=== PATIENT | male | born 1970 | race Hispanic/Latino ===

== ENCOUNTER → 2021-10-08 16:05 | Outpatient (CLI) | payer OTHER, SELFPAY ==
--- NOTE | 2021-10-08 16:09 | DI.RAD.S_ITS ---
PROCEDURE: XR KNEE RT 3V INDICATIONS: R knee pain, fall TECHNIQUE: 3 views of the knee were acquired. COMPARISON: None. FINDINGS: Bones: No fractures or dislocations. No suspicious bony lesions. Soft tissues: No joint effusion. No suspicious soft tissue calcifications. IMPRESSION: No acute radiographic findings. If pain persists, followup imaging in 5-7 days is recommended to exclude occult fracture. Dictated by: Va Bentley M.D. on 10/08/2021 at 16:50 Approved by: Va Bentley M.D. on 10/08/2021 at 16:51
== END ==
PROVIDERS: Referring Provider Physician Assistant; Visit Provider Physician Assistant
DX: S89.91XA Unspecified injury of right lower leg, initial encounter (principal)
CPT/HCPCS: 73562

== ENCOUNTER → 2022-05-22 09:26 | Outpatient (CLI) | payer OTHER, SELFPAY ==
--- NOTE | 2022-06-09 14:13 | DIAB.MNT ---
Initial Diabetes Medical Nutrition Therapy Assessment Name: Robert Solorio Date: 05/22/22 Time: 930-1030a Dx: Type II Diabetes Provider: Elier Jones presents today for initial DM visit. New dx of Dm last year. Maternal FH of DM. Work seems to be a barrier at times in making his appointments. 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 Has concerns about cost of medications, even for Metformin. Per diet recall, high sodium intake and frequent eating out during work hours. Also higher carb intake with some beverage choices. Diet Recall: a: leftovers OR ramen with sausage OR sandwich sn: almonds or nothing 330p: leftovers OR jersey mikes sandwich with juice +/- 1oz chips 830p: meatloaf, broccoli, potatoes x 1c OR chicken and veggie with 1.5c pasta OR burgers on bun Beverages: 48oz water, 20oz coffee (sf energy drink with sweetener added OR white jose manuel with cream sf vanilla coffee), Doris juice (40g CHO) Anthropometrics: Wt: 281.6# last wt Physical Activity: Walking 0.5 mi at work 5 x per week. use to workout one month ago. No intentional program currently. Self-Monitoring Blood Glucose: None currently. Was checking FBG previously, which reports all were <130mg/dl. No pc readings. Diabetes Medications: Metformin 500mg Trulicity 0.75 (inc 1.5 per referral) Pertinent Labs: 10/2021 HgA1c: 7% chol: 213 HDL: 37 LDL: 153 09/2020 hgA1c: 6.1% Nutrition Rx: Carbohydrates: Meal:45-60g Snack:15-30g Nutrition Diagnosis: - Excessive CHO intake r/t beverage choices aeb diet recall - Self monitoring deficit r/t no current SMBG aeb pt report - Physical inactivity r/t stage of change aeb pt report - Predicted excessive Na intake r/t nutrition related knowledge deficit aeb diet recall Intervention: This participant was very receptive. Provided appropriate educational handouts. Discussed the following topics: Completed intake assessment. Discussed barriers to care. Pathophysiology of T2DM HgA1c, its correlation to blood glucose numbers, and rationale for goal Importance of self-monitoring, how often, and when to check. Suggested checking at different times to evaluate meals Plate Method, impact of macronutrients on blood sugar, meal timing, carbohydrate counting, pairing macronutrients and spreading out carbohydrates for better blood glucose management Recommended servings for carbohydrates at meals and snacks Heart health nutrition: sodium Brainstormed appropriate meal plan based on food preferences Role of physical activity and following provider guidelines for safety Medication affordability: Metformin Created SMART goals for patient self-care and success. Goals: Restart exercise program Check pharmacy/insurance about Metformin Switch to lower Na ramen Move meter to somewhere you will use it Avoid sweetened beverages Follow-up: [facility] follow-up in 3-4 weeks Manuela Callaway RDN, [facility]ES Certified Diabetes Care and Postal Service Clerk P: [phone] Thank you for this referral
== END ==
PROVIDERS: PCP Family Medicine; Referring Provider Family Medicine; Visit Provider Family Medicine
DX: E11.9 Type 2 diabetes mellitus without complications (principal); Z79.84 Long term (current) use of oral hypoglycemic drugs; Z79.85 Long-term (current) use of injectable non-insulin antidiabetic drugs; Z71.3 Dietary counseling and surveillance
CPT/HCPCS: 97802

== ENCOUNTER → 2023-01-15 08:31 | Outpatient (CLI) | payer OTHER, SELFPAY ==
[2023-01-15 12:20] LABS: Urine N gonorrhoeae NOT DETECTED
[2023-01-15 12:49] LABS: Urine Chlamydia NOT DETECTED
== END ==
PROVIDERS: PCP Family Medicine; Visit Provider Nurse Practitioner Family
DX: Z72.51 High risk heterosexual behavior (principal); R36.9 Urethral discharge, unspecified
CPT/HCPCS: 87491; 87591

== ENCOUNTER → 2023-01-21 09:24 | Outpatient (CLI) | payer OTHER, SELFPAY | PROVIDERS: PCP Family Medicine; Visit Provider Nurse Practitioner Family | DX: R36.9 Urethral discharge, unspecified (principal) | CPT/HCPCS: 87086 ==